=== PATIENT | female | born 1935 | race Caucasian/White ===

== ENCOUNTER → 2019-11-14 | Outpatient (CLI) | payer MEDICARE, BC ==
--- NOTE | 2019-11-14 17:32 | RAD ---
Left elbow 3 views INDICATION: History of fracture COMPARISON: None currently available FINDINGS: 3 views left elbow show medial and lateral epicondylar plate and screw construct fixation hardware reducing a comminuted supracondylar fracture of the left elbow. There is incomplete osseous bridging between the major fracture fragments in the distal humeral metadiaphysis with residual diastases of the major bone fragments and both the medial and lateral fixation plates are in incomplete contact with the bones targeted for closed reduction. The alignment of the radius and ulna with the reduced epicondyles is anatomic and this portion of the comminuted fracture appears to have healed well status post transverse screw fixation. Soft tissues show mild deformity related to hardware loosening but otherwise are unremarkable. IMPRESSION: Medial and lateral plate and screw construct fixation of a comminuted distal left humeral fracture with evidence of hardware loosening and delayed osseous union of the distal humeral shaft fracture fragments in the distal diaphysis and metaphysis. Electronically signed by: Antonio Lyles MD (11/14/2019 5:29 PM) [id number]
== END | disposition home or self-care (01) ==
LOC: RAD 15:08
PROVIDERS: ATTEND Orthopaedic Surgery
DX: S42.352A Displaced comminuted fracture of shaft of humerus, left arm, initial encounter for closed fracture (principal); S42.402A Unspecified fracture of lower end of left humerus, initial encounter for closed fracture; M21.922 Unspecified acquired deformity of left upper arm; X58.XXXA Exposure to other specified factors, initial encounter; Y93.89 Activity, other specified; Y92.89 Other specified places as the place of occurrence of the external cause; Y99.8 Other external cause status
CPT/HCPCS: 73080

== ENCOUNTER → 2019-12-05 | Outpatient (CLI) | payer MEDICARE, BC ==
--- NOTE | 2019-12-05 17:36 | RAD ---
Study: CR ELBOW RIGHT 3V Indication: Right elbow pain. Comparison: None. Findings: Chronic distal humerus fracture deformity status post medial and lateral plate and screw ORIF and separate screws spanning the capitellum and trochlea. The hardware is intact. Several of the screws associated with the surgical plates exhibit a halo of lucency greatest in transverse dimension around the second most cephalad screw along the ulnar/medial aspect of the humerus measuring around 1.7 mm. The second most distal screw at the medial/ulnar humerus is mildly proud. Lucency along the most proximal aspect of both surgical plates measuring up to 2 mm. No fracture cleft with acute features is seen superimposed on the chronic deformity. Articular surface irregularity of the radial head is favored chronic. No evidence for a large elbow joint effusion. Mild posttraumatic arthrosis. Impression: 1. Status post distal humerus ORIF. The hardware is intact. Halo of lucency to varying degrees surrounding several fixation screws and the proximal portion of both surgical plates. Mildly proud second most distal fixation screw at the medial humerus. No comparison studies are available to determine if this represents loosening/screw retraction or is chronic. If there is concern for loosening consider follow-up radiograph to assess for any change or obtainment of radiographs performed elsewhere. 2. No acute fracture is seen. 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 Electronically signed by: KHADRA GUZMAN MD (12/05/2019 5:34 PM) [id number]
== END | disposition home or self-care (01) ==
LOC: RAD 15:32
PROVIDERS: ATTEND Orthopaedic Surgery
DX: S42.401B Unspecified fracture of lower end of right humerus, initial encounter for open fracture (principal); X58.XXXA Exposure to other specified factors, initial encounter; Y93.89 Activity, other specified; Y92.89 Other specified places as the place of occurrence of the external cause; Y99.8 Other external cause status
CPT/HCPCS: 73080